=== PATIENT | female | born 1990 | race Asian ===

== ENCOUNTER 2021-11-15 01:24 | Inpatient (IN) ==
[2021-11-15] MEDS ORDERED: METHYLERGONOVINE 0.2 MG/1 ML AMP IM PRN (01:37)
[2021-11-15] MEDS ORDERED: miSOPROStoL 200 MCG TABLET RECTAL PRN (01:37)
[2021-11-15] MEDS ORDERED: OXYTOCIN/LR 20 UNIT/1,000 ML BAG IV ONE ×2 (01:37→21:02)
[2021-11-15] MEDS ORDERED: CARBOPROST TROMETHAMINE 250 MCG/ML AMP IM PRN (01:37)
[2021-11-15] MEDS ORDERED: LACTATED RINGERS 500 ML IV PRN (01:37)
[2021-11-15] MEDS ORDERED: BUTORPHANOL 1 MG/ML VIAL IV PRN (01:37)
[2021-11-15] MEDS ORDERED: TRANEXAMIC ACID 1,000 MG in SODIUM CHLORIDE 0.9% 100 ML IV PRN (01:37)
[2021-11-15] MEDS ORDERED: ONDANSETRON 4 MG/2 ML VIAL IV PRN ×2 (01:37→21:02)
[2021-11-15] MEDS ORDERED: LACTATED RINGERS 250 ML IV ONE (01:37)
[2021-11-15] MEDS ORDERED: MEPERIDINE 50 MG/1 ML VIAL IV PRN ×2 (01:40→09:55)
[2021-11-15 02:10] LABS: Basophils % 0.4 % (0.0-0.8); Eosinophils # 0.2 10*3/uL (0.0-0.87); Eosinophils % 2.4 % (0.00-10.9); Hematocrit 30.3 VOL% (35.7-47.0); Hemoglobin 10.6 GM/DL (12.0-16.0); Immature Granulocytes % 0.8 %; Immature Granulocytes Absolute 0.07 #; Lymphocytes # 2.3 10*3/uL (1.4-4.0); Lymphocytes % 25.4 % (21.3-54.2); Mean Corpuscular Volume 82.3 FL (87-102); Mean Platelet Volume 11.1 FL (9.6-12.0); Monocytes # 0.9 10*3/uL (0.11-0.8); Monocytes % 9.8 % (1.7-12.7); NRBC # 0.02 10*3/uL; Neutrophils % 61.2 % (38.7-73.9); Platelet Count 192 T/CUMM (130-400); Red Blood Count 3.68 MC/CUMM (3.8-5.5); Red Cell Distribution Width 16.2 % (9.3-17.3); White Blood Count 9.1 T/CUMM (4-12)
[2021-11-15] MEDS: LACTATED RINGERS 1,000 ML IV SCH ×4 (02:35→14:55)
[2021-11-15] MEDS ORDERED: OXYTOCIN/LR 20 UNIT/1,000 ML BAG IV SCH (10:00)
[2021-11-15] MEDS ORDERED: CITRIC ACID/SODIUM CITRATE 30 ML UDCUP PO ONE (12:00)
[2021-11-15] MEDS ORDERED: diphenhydrAMINE 50 MG/1 ML VIAL IV PRN ×2 (12:00)
[2021-11-15] MEDS ORDERED: PROMETHAZINE 25 MG/1 ML VIAL IM PRN (12:00)
[2021-11-15] MEDS ORDERED: NALOXONE 0.4 MG/ML VIAL IV PRN (12:00)
[2021-11-15] MEDS ORDERED: FAMOTIDINE 20 MG/2 ML VIAL IV ONE (12:00)
[2021-11-15] MEDS ORDERED: hydrOXYzine HCL 25 MG/1 ML VIAL IM PRN (12:00)
[2021-11-15] MEDS ORDERED: fentaNYL 2 MCG/ROPIV 0.2% EPID 100 ML EPIDURAL SCH (12:00)
[2021-11-15] MEDS ORDERED: TERBUTALINE 1 MG/1 ML VIAL ONE (14:02)
[2021-11-15] MEDS ORDERED: TERBUTALINE 1 MG/1 ML VIAL SUBCUT ONE (14:06)
[2021-11-15] MEDS: ePHEDrine 50 MG/ML VIAL IV PRN ×2 (14:09→14:14)
[2021-11-15 15:04] LABS: Bilirubin,Urine Negative (Negative); Blood, Urine Trace mg/dL (Negative); Glucose,Urine (UA) Negative (Negative); Ketones,Urine 15 mg/dL (Negative); Nitrite,Urine Negative (Negative); Protein,Urine Negative (Negative); Urine Appearance Clear (Clear); Urine Color Yellow (Yellow); Urine Urobilinogen 0.2 eU/dL (<2.0); Urine pH 7.5 (4.5-8.0)
[2021-11-15 15:05] LABS: Bacteria,Urine Occasional /HPF (Few); Mucus,Urine Occasional /LPF (Occasional); Squamous Epithelial Cell,Urine Occasional /HPF (0-10)
[2021-11-15] MEDS ORDERED: LACTATED RINGERS 1,000 ML IV ONE (16:17)
[2021-11-15] MEDS ORDERED: SODIUM CHLORIDE 0.9% 0 ML IV ONE (16:47)
[2021-11-15] MEDS ORDERED: TRANEXAMIC ACID 1,000 MG/10 ML VIAL ONE (16:47)
[2021-11-15] MEDS ORDERED: OXYTOCIN/LR 0 UNIT/0 ML BAG IV ONE (16:47)
[2021-11-15] MEDS ORDERED: miSOPROStoL 200 MCG TABLET ONE (16:47)
[2021-11-15] MEDS ORDERED: METHYLERGONOVINE 0.2 MG/1 ML AMP ONE (16:47)
[2021-11-15] MEDS ORDERED: CARBOPROST TROMETHAMINE 250 MCG/ML AMP IM ONE (16:47)
[2021-11-15] MEDS ORDERED: oxyCODONE/ACETAMINOPHEN 5-325 MG TABLET PO PRN (21:02)
[2021-11-15] MEDS ORDERED: LANOLIN 50% CREAM 0.3 OZ TUBE TOP PRN (21:02)
[2021-11-15] MEDS ORDERED: BISACODYL 10 MG SUPP RECTAL PRN (21:02)
[2021-11-15] MEDS ORDERED: DIPH/TET/ACEL PERT BOOSTER VACCINE 0.5 ML VIAL IM ONE (21:02)
[2021-11-15] MEDS ORDERED: BENZOCAINE 20%/MENTHOL 0.5% SPRAY 56 GM CAN TOP PRN (21:02)
[2021-11-15] MEDS ORDERED: RHO(D) IMMUNE GLOBULIN 300 MCG SYRINGE IM ONE (21:02)
[2021-11-15] MEDS ORDERED: MEASLES/MUMPS/RUBELLA VACCINE 0.5 ML VIAL SUBCUT ONE (21:02)
[2021-11-15] MEDS ORDERED: WITCH HAZEL PADS 100/JAR TOP PRN (21:02)
[2021-11-15] MEDS ORDERED: ACETAMINOPHEN 325 MG TABLET PO PRN (21:02)
[2021-11-15] MEDS ORDERED: HYDROCORTISONE 2.5% RECTAL CREAM 30 GM TUBE TOP PRN (21:02)
[2021-11-15 21:09] LABS: Cord Venous Blood HCO3 19.8 MMOL/L; Cord Venous Blood PCO2 42.9 MMHG; Cord Venous Blood PO2 33.7
[2021-11-15 21:12] LABS: Cord Arterial Blood HCO3 18.9 MMOL/L
[2021-11-16] MEDS: LACTATED RINGERS 1,000 ML IV SCH (00:06)
[2021-11-16] MEDS: oxyCODONE/ACETAMINOPHEN 5-325 MG TABLET PO PRN ×2 (01:19→14:55)
[2021-11-16] MEDS: IBUPROFEN 800 MG TABLET PO PRN ×2 (01:19→14:54)
[2021-11-16 06:14] LABS: Basophils % 0.2 % (0.0-0.8); Eosinophils # 0.1 10*3/uL (0.0-0.87); Eosinophils % 0.7 % (0.00-10.9); Hemoglobin 8.7 GM/DL (12.0-16.0); Immature Granulocytes % 0.6 %; Immature Granulocytes Absolute 0.11 #; Lymphocytes # 2.1 10*3/uL (1.4-4.0); Lymphocytes % 11.7 % (21.3-54.2); Mean Corpuscular HGB Conc 34.8 GM/DL (32-36); Mean Corpuscular Volume 81.7 FL (87-102); Mean Platelet Volume 11.3 FL (9.6-12.0); Monocytes # 1.7 10*3/uL (0.11-0.8); Neutrophils % 77.8 % (38.7-73.9); Platelet Count 134 T/CUMM (130-400); Red Blood Count 3.06 MC/CUMM (3.8-5.5); Red Cell Distribution Width 16.4 % (9.3-17.3); White Blood Count 18.3 T/CUMM (4-12)
[2021-11-16] MEDS: DOCUSATE SODIUM 100 MG CAPSULE PO SCH ×2 (08:45→20:26)
[2021-11-16] MEDS: IRON (CARBONYL)/VIT C/B12/FA TABLET PO SCH (08:45)
[2021-11-17 07:46] VITALS: BP 116/60
[2021-11-17] MEDS: DOCUSATE SODIUM 100 MG CAPSULE PO SCH (08:18)
[2021-11-17] MEDS: IRON (CARBONYL)/VIT C/B12/FA TABLET PO SCH (08:18)
[2021-11-17] MEDS: IBUPROFEN 800 MG TABLET PO PRN (08:19)
[2021-11-17 11:54] LABS: Glucose,Urine (UA) Negative (Negative); Protein,Urine Trace mg/dL (Negative); Urine Appearance Clear (Clear); Urine Color Yellow (Yellow)
[2021-11-17 11:55] LABS: Bilirubin,Urine Negative (Negative); Blood, Urine Moderate mg/dL (Negative); Ketones,Urine Negative (Negative); Nitrite,Urine Negative (Negative)
[2021-11-17 12:01] LABS: Mucus,Urine Many /LPF (Occasional); RBC,Urine 29 /HPF (0-4); Squamous Epithelial Cell,Urine Occasional /HPF (0-10)
== END 2021-11-17 12:00 | disposition home or self-care (01) | DRG 807 ==
LOC: N.LD 01:24 → N.OB 23:45
PROVIDERS: ADMIT Obstetrics & Gynecology; ATTEND Obstetrics & Gynecology

== ENCOUNTER 2021-11-19 10:13 | Observation (INO) ==
[2021-11-19] MEDS ORDERED: IBUPROFEN 800 MG TABLET PO PRN (12:31)
[2021-11-19] MEDS ORDERED: SOLIFENACIN 5 MG TABLET PO SCH (13:30)
[2021-11-19 20:08] VITALS: BP 101/68
== END 2021-11-19 18:00 | disposition home or self-care (01) ==
LOC: N.OBOUT 10:13 → N.OB 10:13 → UNDODEPREF 11-28 10:49
PROVIDERS: ADMIT Obstetrics & Gynecology; ATTEND Obstetrics & Gynecology